=== PATIENT | female | born 1945 | race Two or more races ===

== ENCOUNTER 2018-02-27 09:34 | Outpatient (CLI) | payer OTHER | END 2018-02-27 14:51 | disposition home or self-care (01) | LOC: SONOGRAMA 09:34 | DX: E04.2 Nontoxic multinodular goiter (principal) ==

== ENCOUNTER 2019-08-28 07:32 | Outpatient (CLI) | payer OTHER | END 2019-08-28 07:41 | disposition home or self-care (01) | LOC: NUCLEAR 07:32 | DX: R07.9 Chest pain, unspecified (principal); I10 Essential (primary) hypertension ==

== ENCOUNTER → 2019-10-17 | Outpatient (CLI) | payer OTHER | END | disposition home or self-care (01) | LOC: RX STUDY 08:15 | DX: R13.19 Other dysphagia (principal) ==

== ENCOUNTER 2021-01-03 12:20 | Emergency (ER) | payer OTHER ==
[~2021-01-03] VITALS: Ht 160 cm; Wt 71.2 kg
[2021-01-03] MEDS ORDERED: RAMIPRIL1.25 MG PO (12:29)
[2021-01-03] MEDS ORDERED: ATORVASTATIN CA20 MG PO (12:29)
[2021-01-03] MEDS ORDERED: SYNTHROID50 MCG PO (12:30)
[2021-01-03] MEDS ORDERED: CLONAZEPAM1 MG PO (12:30)
[2021-01-03] MEDS ORDERED: CALTRATE 600+D1 EAC1 PO (12:30)
== END 2021-01-03 16:11 | disposition home or self-care (01) ==
LOC: ER 12:20
DX: M54.5 Low back pain (principal)

== ENCOUNTER 2025-06-26 20:43 | Emergency (ER) | payer OTHER ==
[~2025-06-26] VITALS: Ht 162.6 cm; Wt 61.2 kg
[~2025-06-26 20:43] MED LIST: ATORVASTATIN CA20 MG PO; CALTRATE 600+D1 EAC1 PO; CLONAZEPAM1 MG PO; RAMIPRIL1.25 MG PO; SYNTHROID50 MCG PO
[2025-06-26] MEDS ORDERED: LIPITOR20 MG (21:17)
[2025-06-26] MEDS ORDERED: FAMOTIDINE/PF 20 MG in 0.9 % SODIUM CHLORIDE 8 ML IV PUSH STA (21:39)
[2025-06-26] MEDS ORDERED: 0.9 % SODIUM CHLORIDE 1,000 ML IV SCH (21:45)
[2025-06-26] MEDS ORDERED: ONDANSETRON HCL 2 MG/ML VIAL IV ONE (21:45)
[2025-06-26] MEDS ORDERED: SUCRALFATE 1 G TABLET PO ONE (21:45)
[2025-06-26 22:16] LABS: BASO % 0.8 % (0.1-1.2); EOS # 0.02 (0.04-0.54); EOS % 0.3 % (0.7-7.0); LYMPH # 0.49 (1.18-3.74); LYMPH % 8.2 % (19.3-53.1); MEAN PLATELET VOLUME 12.70 fl (9.4-12.4); MONO # 0.43 (0.24-0.82); MONO % 7.2 % (4.7-12.5); NEUT # 4.93 (1.56-6.13); NEUT % 83.2 % (34.0-71.1); RED CELL DISTRIBUTION WIDTH 13.3 % (11.6-14.4)
[2025-06-26 22:41] LABS: ALT/SGPT 36.0 U/L (12-78); AST/SGOT 25.0 U/L (15-37); BILIRUBIN TOTAL 0.56 mg/dL (0.3-1.2); BUN CREA RATIO 13.0 (7.0-25.0); CREATININE SERUM 0.62 mg/dL (0.55-1.02); GFR 93.34; GLOBULINA 3.8 G/DL (2.4-3.5); GLUCOSE FASTING 126.0 mg/dL (65-100); OSMOLALITY SERUM 261.0 MOSM/KG (275-295)
[2025-06-26] MEDS ORDERED: METOCLOPRAMIDE HCL 10 MG in DEXTROSE 5 % IN WATER 50 ML IV ONE (23:00)
[2025-06-26] MEDS ORDERED: ONDANSETRON ODT8 MG PO (23:43)
[2025-06-26] MEDS ORDERED: PEPCID AC20 MG PO (23:43)
[2025-06-26 23:55] VITALS: BP 156/77; O2SAT 100
== END 2025-06-26 23:56 | disposition home or self-care (01) ==
LOC: ER 21:08
PROVIDERS: General Practice
DX: K29.70 Gastritis, unspecified, without bleeding (principal)
CPT/HCPCS: 36415; 96365; 99282; J2405; J3490